=== PATIENT | male | born 1950 | race Hispanic/Latino ===

== ENCOUNTER 2021-11-08 08:54 | Inpatient (IN) | payer OTHER ==
[~2021-11-08] VITALS: Ht 157.5 cm; Wt 59.6 kg
[2021-11-08 09:05] VITALS: BP 168/84
[2021-11-08] MEDS ORDERED: MORPHINE SULFATE IV STA (09:09)
[2021-11-08] MEDS ORDERED: MORPHINE SULFATE ONE (09:11)
[2021-11-08] MEDS ORDERED: ASPIRIN PO STA (09:11)
[2021-11-08] MEDS ORDERED: ASPIRIN ONE (09:11)
--- NOTE | 2021-11-08 09:14 | PCM.EKG ---
[facility] Test Date: 2021-11-08 Test Time: 08:57:08 Pat Name: ALEX ADKINS Department: Room: Gender: M Sports Official: LIDYA : 1950 Requested By: TIGRE THOMAS Order Number: [id number] Reading MD: Measurements Intervals [place] Rate: 69 P: 56 MD: 109 QRS: -39 QRSD: 121 T: 80 QT: 460 QTc: 493 Interpretive Statements Sinus rhythm Vent pre-excit'n(WPW), right access'y pathway No previous ECG available for comparison Please click the below link to view image of tracing.
[2021-11-08 09:17] LABS: BASOPHIL % 0.2 % (0.0-0.2); EOSINOPHIL # 0.2 10^3/uL (0.0-0.2); EOSINOPHIL % 1.6 % (0.0-5.0); LYMPHOCYTES # 2.2 10^3/uL1 (1.0-4.8); LYMPHOCYTES % 21.4 % (24.0-44.0); MEAN CORP HGB 32.1 pg (26-34); MONOCYTES # 0.5 10^3/uL (0.3-0.8); MONOCYTES % 5.1 % (5.0-12.0); NEUTROPHIL # 7.4 10^3/uL (1.8-7.7); NEUTROPHILS % 71.5 % (41.0-85.0); RED CELL DISTRIBUTION WIDTH 12.3 % (11.5-14.5)
[2021-11-08] MEDS ORDERED: ZOFRAN ONE (09:19)
--- NOTE | 2021-11-08 09:19 | ER.PDOC ---
General Chief Complaint: Chest Pain-Cardiac Nature Stated Complaint: CP,BACK PAIN Time seen by MD: 09:10 Source: patient Exam Limitations: no limitations History of Present Illness Initial Comments 71-year-old male with history of hypertension and hyperlipidemia who comes here with chest pain. The chest pains pressure-like and retrosternal and moderate in intensity and started at 4 AM. No fever and no chills. No cough. No shortness of breath. No abdominal pain. No vomiting. No diarrhea. Symptoms are not associated with activity. He took an aspirin before coming here. Denies any other complaint. Past Medical History Medical History: high cholesterol, hypertension Surgical History: no surgical history LMP (females 10-50): N/A Not applicalbe Family History Significant Family History: no pertinent family hx Social History Smoking: non-smoker Alcohol Use: occassionally Drug Use: none Reviewed Nursing Reviewed: Vital Signs, Abn. Noted, Nursing Assessment Constitutional: denies no symptoms reported, denies see HPI, denies chills, denies diaphoresis, denies fever, denies malaise, denies weakness, denies other EENTM: denies no symptoms reported, denies see HPI, denies eye pain, denies blurred vision, denies tearing, denies double vision, denies ear pain, denies ear discharge, denies nose pain, denies nose congestion, denies throat pain, denies throat swelling, denies mouth pain, denies mouth swelling, denies other Respiratory: denies no symptoms reported, denies see HPI, denies cough, denies orthopnea, denies shortness of breath, denies SOB with exertion, denies SOB at rest, denies stridor, denies wheezing, denies other Cardiovascular: denies no symptoms reported, denies see HPI; chest pain; denies edema, denies irregular heart rate, denies lightheadedness, denies palpitations, denies syncope, denies other Gastrointestinal: denies no symptoms reported, denies see HPI, denies abdomen distended, denies abdominal pain, denies blood streaked bowels, denies constipated, denies diarrhea, denies difficulty swallowing, denies nausea, denies poor appetite, denies poor fluid intake, denies rectal bleeding, denies vomiting, denies other Genitourinary: denies no symptoms reported, denies see HPI, denies burning, denies dysuria, denies discharge, denies frequency, denies flank pain, denies hematuria, denies incontinence, denies pain, denies urgency, denies other Musculoskeletal: denies no symptoms reported, denies see HPI, denies back pain, denies gout, denies joint pain, denies joint swelling, denies muscle pain, denies muscle stiffness, denies neck pain, denies other Skin: denies no symptoms reported, denies see HPI, denies change in color, denies change in hair/nails, denies dryness, denies lesions, denies lumps, denies rash, denies other Psychiatric/Neurological: denies no symptoms reported, denies see HPI, denies anxiety, denies depressed, denies emotional problems, denies headache, denies numbness, denies paresthesia, denies pre-existing deficit, denies seizure, denies tingling, denies tremors, denies weakness, denies other All Other Systems: Reviewed and Negative Physical Exam General Appearance: No Apparent Distress, WD/WN HEENT: PERRL/EOMI, Normal ENT Inspection Neck: Non-Tender, Full Range of Motion, Supple, Normal Inspection Respiratory: chest non-tender, lungs clear, normal breath sounds, no re spiratory distress, no accessory muscle use Cardiovascular: Normal Peripheral Pulses, Regular Rate, Rhythm, No Edema, No Gallop, No JVD, No Murmur Gastrointestinal: Normal Bowel Sounds, No Organomegaly, No Pulsatile Mass, Non Tender, Soft Extremities: Normal Range of Motion, Non-Tender, Normal Inspection, No Pedal Ed patito, No Calf Tenderness, Normal Capillary Refill Neurologic/Psychiatric: methods analyst data processing II-XII NML as Tested, No Motor/Sensory Deficits, Alert, Normal Mood/Affect, Oriented x 3 Skin: Normal Color, Warm/Dry Lymphatic: No Adenopathy Results/Orders Results/Orders Orders - TIGRE THOMAS MD Morphine Sulfate (Morphine Sulfate) (11/08/21 09:09) Ondansetron Hcl/Pf (Zofran) (11/08/21 09:30) Cbc With Auto Diff (11/08/21 09:11) Comprehensive Metabolic Panel (11/08/21 09:11) Probnp B-Type Translational Specialist (11/08/21 09:11) PT (11/08/21 09:11) Partial Thromboplastin Time. (11/08/21 09:11) Helicobacter Pylori (11/08/21 09:11) D-Dimer (11/08/21 09:11) Xr Chest 1v (11/08/21 09:11) Ekg-Routine (11/08/21 09:11) Troponin I High Sensitivity (11/08/21 09:11) Aspirin (Aspirin) (11/08/21 09:11) Vital Signs Date Time Temp Pulse Resp B/P (MAP) Pulse Ox O2 Delivery O2 Flow Rate FiO2 11/08/21 09:05 97.7 70 16 168/84 (112) 98 Room Air* 0 21 11/08/21 09:05 97.7 70 16 98 11/08/21 09:05 97.7 70 16 Progress Progress Patient with many risk factors for heart disease and also abnormal EKG. Will be admitted to the medical team. EKG/XRAY/CT/US EKG Comments: SR@ 69, HI 109, QRS 121, ST hyperpeaked T waves, ST depression V5-6 XRAY Comments: CXR- no acute dz ER DEPART Departure Time of Disposition: 10:51 Disposition: 09 ADMITTED INPATIENT Impression: Primary Impression: Chest pain Additional Impression: Acute coronary syndrome Condition: Stable Referrals: ROBBY EARL (PCP) PRIMARY CARE PROVIDER Duration or Time Spent with Pa: 45 min Problem Qualifiers TIGRE THOMAS MD November 08, 2021 09:19
[2021-11-08] MEDS ORDERED: NITROSTAT SL STA (09:23)
--- NOTE | 2021-11-08 09:25 | NUR ---
pain RATES PAIN A 6-7 FROM 10 POST MORPHINE AND NITRO.
[2021-11-08 09:28] LABS: CARBON DIOXIDE 22.8 mmol/L (20.0-32)
--- NOTE | 2021-11-08 09:28 | DIREP ---
PROCEDURE:CHEST 1 VIEW COMPARISON:None. INDICATIONS:chest pain FINDINGS: LUNGS/PLEURA:No significant pulmonary parenchymal abnormalities. No effusions. VASCULATURE:Normal. Unremarkable pulmonary vasculature. CARDIAC:Normal. No cardiac silhouette abnormality or cardiomegaly. MEDIASTINUM:Atherosclerotic aorta with no visible aneurysm. BONES:Normal. No fracture or visible bony lesion. OTHER:Negative. CONCLUSION:No acute cardiopulmonary findings. Dictated by: Chetan Garcia M.D. on 11/08/2021 at 09:26 AM
[2021-11-08] MEDS ORDERED: ZOFRAN IV PRN (09:30)
[2021-11-08] MEDS ORDERED: LOVENOX SQ STA (10:52)
[2021-11-08] MEDS ORDERED: LOVENOX SQ ONE (11:00)
[2021-11-08 11:14] VITALS: BP 169/75
[2021-11-08 12:00] VITALS: BP 159/92
--- NOTE | 2021-11-08 12:00 | NUR ---
ADMIT PATIENT ARRIVED ON UNIT VIA WHEELCHAIR ESCORTED BY GRUPO DUVALL LVN.
--- NOTE | 2021-11-08 12:47 | PCM.HP ---
History of Present Illness Reason for Visit: Chest pain History of Present Illness 71-year-old male with history of hypertension and hyperlipidemia who comes here with chest pain. The chest pains pressure-like and retrosternal and moderate in intensity and started at 4 AM. No fever and no chills. No cough. No shortness of breath. No abdominal pain. No vomiting. No diarrhea. Symptoms are not associated with activity. He took an aspirin before coming here. Denies any other complaint. Work-up in the emergency room including initial troponin, high-sensitivity negative. EKG showed changes. Mildly elevated LFTs. In the emergency room patient was given aspirin, given 1 dose of Lovenox. Patient is being admitted hospital for further management. Past Medical History Cardiac: HTN, Hyperlipidemia Past Surgical History: No pertinent hx Past Social History Smoke: No Alcohol: rare Review of Systems Respiratory: No: Shortness of breath Cardiovascular: Chest Pain Gastrointestinal: Nausea; No: Vomiting Other Review of 14 systems negative except was mentioned above. Allergies: Coded Allergies: No Known Drug Allergies (Verified Allergy, Unknown, 11/08/21) Scheduled Atorvastatin 20MG (Lipitor 20MG), 20 MG PO DAILY24, (Reported) Lisinopril (Lisinopril), 1 TAB PO DAILY, (Reported) VTE VTE Risk Score VTE Risk: Score 0-1 = Low Risk (Aggressive mobilization; early ambulation; no VTE prophylaxis required) Score 2: Moderate Risk (Intermittent/Pneumatic Compression Device OR Lovenox/Heparin/Coumadin) Score 3-4: High Risk (Intermittent/Pneumatic Compression Device AND Lovenox/Heparin/Coumadin) Score > or =5: Highest Risk (Intermittent/Pneumatic Compression Device AND Lovenox/Heparin/Coumadin) Exam Vital Signs Vital Signs Date Time Temp Pulse Resp B/P (MAP) Pulse Ox O2 Delivery O2 Flow Rate FiO2 11/08/21 12:17 Room Air 11/08/21 11:14 97.6 64 14 169/75 (106) 98 0 21 General Appearance: Alert, Oriented X3, mild distress HEENT: Atraumatic, PERRLA Respiratory: Clear to auscultation, Normal air movement Cardiovascular: Regular rate, Normal S1, Normal S2 Abdominal: Normal bowel sounds, Soft Extremities: No clubbing, No cyanosis Skin: No rash, No breakdown Neuro: Normal gait, Normal speech Psych/Mental Status: Mental status NL Assessment/Plan Assessment/Plan Assessment/Plan 71-year-old male with history of hypertension and hyperlipidemia who comes here with chest pain. The chest pains pressure-like and retrosternal and moderate in intensity and started at 4 AM. No fever and no chills. No cough. No shortness of breath. No abdominal pain. No vomiting. No diarrhea. Symptoms are not associated with activity. He took an aspirin before coming here. Denies any other complaint. Plan Admit Telemetry monitoring Aspirin Trend troponins Lab Instructor consulted by ED physician Trend LFTs Reconcile home meds GI and DVT prophylaxis as appropriate Expect length of stay 1 midnight if patient stable Problems: (1) Hyperlipidemia ICD Code: E78.5 - Hyperlipidemia, unspecified SNOMED: 03715416 (2) Hypertension ICD Code: I10 - Essential (primary) hypertension SNOMED: 32706495 (3) Chest pain Status: Acute ICD Code: R07.9 - Chest pain, unspecified SNOMED: 35054134 VASQUEZ WALKER MD November 08, 2021 12:47
[2021-11-08] MEDS ORDERED: TYLENOL PO PRN (13:00)
[2021-11-08] MEDS ORDERED: LISI10TA20 PO (14:11)
[2021-11-08] MEDS ORDERED: ATOR20TA PO (14:12)
[2021-11-08 17:11] VITALS: BP 158/78
[2021-11-08 19:44] VITALS: BP 153/73
--- NOTE | 2021-11-08 20:39 | PCM.EKG ---
[facility] Test Date: 2021-11-08 Test Time: 20:35:29 Pat Name: ALEX ADKINS Department: Room: 331 A Gender: M Manager Content: : 1950 Requested By: WESLEY CROOKS Order Number: [id number] Reading MD: Measurements Intervals [place] Rate: 66 P: 68 AK: 113 QRS: -45 QRSD: 115 T: 43 QT: 432 QTc: 453 Interpretive Statements Sinus rhythm Ventricular preexcitation(WPW) Compared to ECG 11/08/2021 08:57:08 No significant changes Please click the below link to view image of tracing.
[2021-11-09 00:44] VITALS: BP 130/78
[2021-11-09 04:53] VITALS: BP 133/69
[2021-11-09 04:58] LABS: BASOPHIL % 0.3 % (0.0-0.2); EOSINOPHIL # 0.2 10^3/uL (0.0-0.2); EOSINOPHIL % 3.5 % (0.0-5.0); LYMPHOCYTES # 1.62 10^3/uL1 (1.0-4.8); LYMPHOCYTES % 23.7 % (24.0-44.0); MEAN CORP HGB 32.4 pg (26-34); MONOCYTES # 0.5 10^3/uL (0.3-0.8); MONOCYTES % 7.5 % (5.0-12.0); NEUTROPHIL # 4.5 10^3/uL (1.8-7.7); PLATELET COUNT 216 10^3/uL (150-400); RED CELL DISTRIBUTION WIDTH 12.8 % (11.5-14.5)
[2021-11-09 05:12] LABS: CARBON DIOXIDE 24.9 mmol/L (20.0-32)
[2021-11-09 06:54] VITALS: BP 131/78
[2021-11-09] MEDS: ASPIRIN EC PO SCH (08:57)
[2021-11-09] MEDS: PROTONIX PO SCH (08:57)
--- NOTE | 2021-11-09 09:15 | NUR ---
DISCHARGE PLAN [email or web address] AND VISITED WITH PATIENT ABOUT DISCHARGE PLANS/NEEDS/GOALS. 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 PATIENT REPORTS THAT HE SEE'S A PCP IN [place], BUT UNSURE OF WHAT HIS NAME IS. PATIENT REPORTS HE IS IND AND DRIVES DAILY. DENIES ANY DISCHARGE NEEDS. PATIENT PLANS TO DISCHARGE BACK HOME AND RETURN TO WORK.
[2021-11-09 11:10] VITALS: BP 119/75
[2021-11-09] MEDS ORDERED: PANT40TA3 PO (12:13)
[2021-11-09] MEDS ORDERED: ASPI-929 PO (12:13)
--- NOTE | 2021-11-09 12:18 | PRM.DC ---
Discharge Summary Reason for Visit: Chest pain Additional Comments 71-year-old male with history of hypertension, hyperlipidemia presented emergency room with chest pain. Initial work-up including initial troponin negative. EKG showed nonspecific ST changes. Patient was given aspirin, 1 dose of Lovenox.Patient was admitted to the hospital for further management. Chest pain resolved. Patient is feeling much better today. Only concerned that his LFTs on admission was mildly elevated, today its higher. Patient is on statin at home. We will get a right Upper quadrant ultrasound before discharge, if unremarkable Patient can be discharged but will advised to hold statins until patient follow-up with his primary care physician and drawing machine operator. If right upper quadrant ultrasound negative, patient will be able to be discharged. Patient will be discharged home. Activity as tolerated. Diet heart healthy. Follow-up with primary care physician as soon as possible. Aloe up with his drawing machine operator in 1 week, may need further cardiac work-up including stress testing. Patient History: Unknown Exam/Vitals Vital Signs Date Time Temp Pulse Resp B/P (MAP) Pulse Ox O2 Delivery O2 Flow Rate FiO2 11/09/21 11:10 97.9 67 18 119/75 (90) 98 Room Air* 0 11/09/21 06:54 98.3 60 18 131/78 (95) 97 Room Air* 0 11/09/21 04:53 97.8 61 18 133/69 (90) 95 Room Air* 0 11/09/21 00:44 98.4 80 18 130/78 (95) 98 Room Air* 0 11/08/21 23:38 Room Air 11/08/21 19:44 98.7 64 18 153/73 (99) 96 Room Air* 0 11/08/21 19:44 98.7 64 18 96 Room Air 0.00 11/08/21 17:11 99.2 74 18 158/78 (104) 97 Room Air* 0 11/08/21 12:17 Room Air 11/08/21 12:00 98.0 62 18 159/92 (114) 97 Room Air* 0 11/08/21 11:14 97.6 64 14 169/75 (106) 98 Room Air* 0 11/08/21 09:05 97.7 70 16 168/84 (112) 98 Room Air* 0 11/08/21 09:05 97.7 70 16 98 11/08/21 09:05 97.7 70 16 General: Alert, Oriented X3, No acute distress HEENT: Atraumatic, PERRLA Neck: Supple, No JVD Lungs: Clear to auscultation, Normal air movement Heart: Regular rate, Normal S1, Normal S2 Abdomen: Normal bowel sounds, Soft Extremities: No clubbing, No cyanosis Skin: No significant lesion Neuro: Normal speech, Normal tone Psych/Mental Status: Mental status NL, Mood NL Scheduled Aspirin (Aspirin Ec), 81 MG PO DAILY Atorvastatin 20MG (Lipitor 20MG), 20 MG PO DAILY24, (Reported) Lisinopril (Lisinopril), 1 TAB PO DAILY, (Reported) Pantoprazole Sodium (Protonix), 40 MG PO DAILY Sepsis Evaluation @ Discharge 11/08/21 23:52 Plan Problems: (1) Chest pain Status: Acute ICD Code: R07.9 - Chest pain, unspecified SNOMED: 50292998 (2) Hypertension ICD Code: I10 - Essential (primary) hypertension SNOMED: 17823049 (3) Hyperlipidemia ICD Code: E78.5 - Hyperlipidemia, unspecified SNOMED: 20859487 Plan 71-year-old male with history of hypertension, hyperlipidemia presented emergency room with chest pain. Initial work-up including initial troponin negative. EKG showed nonspecific ST changes. Patient was given aspirin, 1 dose of Lovenox.Patient was admitted to the hospital for further management. Chest pain resolved. Patient is feeling much better today. Only concerned that his LFTs on admission was mildly elevated, today its higher. Patient is on statin at home. We will get a right Upper quadrant ultrasound before discharge, if unremarkable Patient can be discharged but will advised to hold statins until patient follow-up with his primary care physician and drawing machine operator. If right upper quadrant ultrasound negative, patient will be able to be discharged. Patient will be discharged home. Activity as tolerated. Diet heart healthy. Follow-up with primary care physician as soon as possible. Aloe up with his drawing machine operator in 1 week, may need further cardiac work-up including stress testing. VASQUEZ WALKER MD Nov 09, 2021 12:18
[2021-11-09 15:45] VITALS: BP 137/74
--- NOTE | 2021-11-09 16:01 | CNH ---
DATE OF CONSULTATION: 11/08/2021 DICTATOR NAME: WESLEY CROOKS DO REASON FOR CONSULTATION: Chest pain. HISTORY OF PRESENT ILLNESS: This is a 71-year-old male who presented to the Emergency Room with sudden onset of chest discomfort, which he states started this morning while he was at work. Upon presentation to the ED, EKG shows normal sinus rhythm with left ventricular hypertrophy and nonspecific ST-T wave changes with an old inferior infarct. High sensitive troponin is currently negative x 3. At this time, he denies any chest pain. A consultation was placed to Cardiology service for evaluation. PAST MEDICAL HISTORY: Significant for; 1. Hypertension. 2. Hyperlipidemia. PAST SURGICAL HISTORY: He denies any surgical history. ALLERGIES: He has no known drug allergies. MEDICATIONS: He takes at home. The patient reports taking the medication for high blood pressure as well as high cholesterol, but cannot recall the names. FAMILY HISTORY: He denies any family history of premature coronary artery disease or sudden cardiac . SOCIAL HISTORY: He denies tobacco use, denies illicit drug use. Admits to occasional alcohol use. REVIEW OF SYSTEMS: As per HPI and as per the ER notes, all systems are reviewed and negative for interval change. PHYSICAL EXAMINATION: VITAL SIGNS: Blood pressure is 158/78, respiratory rate is 18, pulse is 74, temperature is 98.7, pulse oximetry 97% on room air. GENERAL: He is in no apparent distress, alert and oriented x 3. HEENT: Normocephalic, atraumatic. Extraocular muscles intact. Pupils equally round, reactive to light and accommodation. CARDIAC: S1, S2 plus 2/6 holosystolic murmur. No gallops, rubs, or clicks. LUNGS: Clear to auscultation bilaterally. No wheezing, rhonchi or rales. ABDOMEN: Soft, nontender, nondistended. Positive bowel sounds in all 4 quadrants. EXTREMITIES: No cyanosis, no clubbing, no edema, +2 pedal pulses palpable bilaterally. NEUROLOGIC: No neurological deficits. Sensation is intact. IMPRESSION: 1. Chest pain. 2. Hypertension. 3. Hyperlipidemia. RECOMMENDATIONS: This is a 71-year-old male who presented to the Emergency Room with chest pain that started this morning. High sensitive troponin is negative x 3. At this time, he denies any angina. Echocardiography is currently not available at the hospital. Given his risk factors for CAD, he certainly would benefit from cardiac ischemic workup. This will be set up in the outpatient setting when he follows up with me in the clinic. If he remains chest pain free in the morning and troponins remain negative, he can be discharged home from my standpoint to follow up with me in the clinic in 1 week. He will be set up for stress test and echocardiography in the outpatient setting. Bethany HAYS D.O. DR: ELO TID: [id number] RECEIPT: [id number]
[2021-11-09 20:03] VITALS: BP 161/84
--- NOTE | 2021-11-09 23:56 | DIREP ---
PROCEDURE:US ABDOMEN LIMITED COMPARISON:None. INDICATIONS:Elevated LFTs, Epigastic pain TECHNIQUE:High resolution sonographic examination was performed of the abdomen. FINDINGS: PANCREAS:The imaged pancreatic body appears grossly unremarkable. The pancreatic head and tail are largely obscured by overlying bowel gas. LIVER:Increased hepatic echogenicity would suggest diffuse hepatic steatosis. Appropriate directional flow within the main portal vein. GALLBLADDER:Apparent mild biliary sludge. No definite echogenic shadowing calculi are identified. There is no overt gallbladder wall thickening or pericholecystic fluid collections. BILIARY:The common duct measures up to approximately 2 mm diameter and is within normal limits. RIGHT KIDNEY:The right kidney measures approximately 9.9 x 3.7 x 4.2 cm. No hydronephrosis. OTHER:No significant ascites. CONCLUSION: 1. Apparent biliary sludge without definite cholelithiasis. No secondary signs to suggest acute cholecystitis. Normal caliber common duct. 2. Diffuse hepatic steatosis. Dictated by: Eliazar Baker M.D. On 11/09/2021 at 11:52 PM
[2021-11-10 00:31] VITALS: BP 128/82
[2021-11-10 03:00] VITALS: BP 140/89
[2021-11-10 09:10] VITALS: BP 138/86
[2021-11-10] MEDS: PROTONIX PO SCH (09:54)
[2021-11-10] MEDS: ASPIRIN EC PO SCH (10:17)
--- NOTE | 2021-11-10 10:29 | PRM.PN ---
Subjective Subjective Date: Nov 09, 2021 Time: 20:00 Patient History: Unknown Assessment/Plan Assessment/Plan Assessment/Plan LFTs trending up. Right upper quadrant ultrasound shows? Biliary sludge. Patient will be kept overnight and will recheck LFTs in a.m. If LFTs continues to trend up we will consult surgeon. If LFTs start trending down patient will be able to be disc harged if asymptomatic. VASQUEZ WALKER MD Nov 10, 2021 10:29
--- NOTE | 2021-11-10 10:35 | PRM.DC ---
DISCHARGE SUMMARY Y 71-year-old male with history of hypertension, hyperlipidemia presented [facility] with chest pain. Initial work-up including initial troponin negative. EKG showed nonspecific ST changes. Patient was given aspirin, 1 dose of Lovenox.Patient was admitted to the hospital for further management. Work-up including troponin is negative. Chest pain resolved. His LFTs started trending up yesterday. Right upper quadrant ultrasound was done.? Biliary sludge. Patient was kept overnight. LFTs rechecked. LFTs started trending down today. Patient denies chest pain or abdominal pain. Patient will be discharged home. Activity as tolerated. Diet heart healthy. Patient will be discharged home. Follow-up with primary care physician in 1 week. Follow-up with cardiology in 1 week. Patient may need further cardiac work-up including stress testing. Patient History: Unknown Vital Signs Date Time Temp Pulse Resp B/P (MAP) Pulse Ox O2 Delivery O2 Flow Rate FiO2 11/10/21 09:10 97.7 67 18 138/86 (103) 96 Room Air* 0 11/10/21 03:00 98.5 63 18 140/89 (106) 95 Room Air* 0 11/10/21 00:31 97.9 73 18 128/82 (97) 96 Room Air* 0 11/09/21 21:04 Room Air 11/09/21 20:03 97.8 79 17 161/84 (109) 99 Room Air* 0 11/09/21 15:45 98.1 64 17 137/74 (95) 97 Room Air* 0 11/09/21 11:10 97.9 67 18 119/75 (90) 98 Room Air* 0 11/09/21 06:54 98.3 60 18 131/78 (95) 97 Room Air* 0 11/09/21 04:53 97.8 61 18 133/69 (90) 95 Room Air* 0 11/09/21 00:44 98.4 80 18 130/78 (95) 98 Room Air* 0 11/08/21 23:38 Room Air 11/08/21 19:44 98.7 64 18 153/73 (99) 96 Room Air* 0 11/08/21 19:44 98.7 64 18 96 Room Air 0.00 11/08/21 17:11 99.2 74 18 158/78 (104) 97 Room Air* 0 11/08/21 12:17 Room Air 11/08/21 12:00 98.0 62 18 159/92 (114) 97 Room Air* 0 11/08/21 11:14 97.6 64 14 169/75 (106) 98 Room Air* 0 11/08/21 09:05 97.7 70 16 168/84 (112) 98 Room Air* 0 11/08/21 09:05 97.7 70 16 98 11/08/21 09:05 97.7 70 16 Exam/Vitals Vital Signs Date Time Temp Pulse Resp B/P (MAP) Pulse Ox O2 Delivery O2 Flow Rate FiO2 11/09/21 11:10 97.9 67 18 119/75 (90) 98 Room Air* 0 11/09/21 06:54 98.3 60 18 131/78 (95) 97 Room Air* 0 11/09/21 04:53 97.8 61 18 133/69 (90) 95 Room Air* 0 11/09/21 00:44 98.4 80 18 130/78 (95) 98 Room Air* 0 11/08/21 23:38 Room Air 11/08/21 19:44 98.7 64 18 153/73 (99) 96 Room Air* 0 11/08/21 19:44 98.7 64 18 96 Room Air 0.00 11/08/21 17:11 99.2 74 18 158/78 (104) 97 Room Air* 0 11/08/21 12:17 Room Air 11/08/21 12:00 98.0 62 18 159/92 (114) 97 Room Air* 0 11/08/21 11:14 97.6 64 14 169/75 (106) 98 Room Air* 0 11/08/21 09:05 97.7 70 16 168/84 (112) 98 Room Air* 0 11/08/21 09:05 97.7 70 16 98 11/08/21 09:05 97.7 70 16 General: Alert, Oriented X3, No acute distress HEENT: Atraumatic, PERRLA Neck: Supple, No JVD Lungs: Clear to auscultation, Normal air movement Heart: Regular rate, Normal S1, Normal S2 Abdomen: Normal bowel sounds, Soft Extremities: No clubbing, No cyanosis Skin: No significant lesion Neuro: Normal speech, Normal tone Psych/Mental Status: Mental status NL, Mood NL Scheduled Aspirin (Aspirin Ec), 81 MG PO DAILY Atorvastatin 20MG (Lipitor 20MG), 20 MG PO DAILY24, (Reported) Lisinopril (Lisinopril), 1 TAB PO DAILY, (Reported) Pantoprazole Sodium (Protonix), 40 MG PO DAILY Sepsis Evaluation @ Discharge Plan Problems: (1) Chest pain Status: Acute ICD Code: R07.9 - Chest pain, unspecified SNOMED: 69824993 (2) Hypertension ICD Code: I10 - Essential (primary) hypertension SNOMED: 47527396 (3) Hyperlipidemia ICD Code: E78.5 - Hyperlipidemia, unspecified SNOMED: 94082077 4. Transaminitis Plan 71-year-old male with history of hypertension, hyperlipidemia presented emergency room with chest pain. Initial work-up including initial troponin negative. EKG showed nonspecific ST changes. Patient was given aspirin, 1 dose of Lovenox.Patient was admitted to the hospital for further management. Work-up including troponin is negative. Chest pain resolved. His LFTs started trending up yesterday. Right upper quadrant ultrasound was done.? Biliary sludge. Patient was kept overnight. LFTs rechecked. LFTs started trending down today. Patient denies chest pain or abdominal pain. Patient will be discharged home. Activity as tolerated. Diet heart healthy. Patient will be discharged home. Follow-up with primary care physician in 1 week. Follow-up with cardiology in 1 week. Patient may need further cardiac work-up including stress testing. VASQUEZ WALKER MD Nov 10, 2021 10:35
--- NOTE | 2021-11-10 11:10 | NUR ---
PRESCRIPTIONS PRESCRIPTIONS CALLED INTO [facility] IN [place], [place] BY THIS NURSE AT THIS TIME.
[2021-11-10 12:22] VITALS: BP 132/73
--- NOTE | 2021-11-10 12:55 | NUR ---
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 PATIENT REPORTS THAT HE HAS AN APPT@THE END OF THE YEAR. CM [facility]ED [facility] AND SPOKE WITH CHARLES AND NEW APPT MADE FOR PATIENT TO FOLLOW UP ON NOVEMBER 17, 2021@8:30 AND PATIENT WILL SEE DR Jackie CHRISTY'S NURSE [facility]. CM OBTAINED FAX NUMBERS FOR PCP. CM FAXED COMPLETE CLINICAL RECORD TO DR Jackie CHRISTY@[phone] & [phone]. FAX CONFIRMATION CONFIRMED COMPLETE ON BOTH FAXES. CM CONTACTED PATIENT VIA PHONE AND INFORMED HIM OF APPT TIME AND HE IS AGREEABLE. PATIENT REPORTS THAT INFORMATION IS IN HIS DISCHARGE PAPERWORK.
[2021-11-10 13:00] VITALS: BP 132/73
--- NOTE | 2021-11-10 13:00 | NUR ---
DISCHARGE IV REMOVED TIP INTACT, TELEMETRY REMOVE. INSTRUCTED ON HOME MEDICATION REGIME, HOME ACTIVITY AND DIET, FOLLOW UP APPOINTMENTS. PATIENT DENIES FURTHER NEEDS AT THIS TIME. ESCORTED PATIENT OFF UNIT. PATIENT LEFT HOSPITAL WITH SON.
== END 2021-11-10 13:00 | disposition home or self-care (01) | DRG 313 ==
LOC: ER 08:54 → MS 11:09
PROVIDERS: ADMIT Internal Medicine; ATTEND Internal Medicine
DX: R07.9 Chest pain, unspecified (principal); I24.9 Acute ischemic heart disease, unspecified; E78.00 Pure hypercholesterolemia, unspecified; E78.5 Hyperlipidemia, unspecified; I10 Essential (primary) hypertension; R79.89 Other specified abnormal findings of blood chemistry; Z79.899 Other long term (current) drug therapy
CPT/HCPCS: 36415; 71045; 76705; 80053; 80076; 83880; 84484; 85025; 85379; 85610; 85730; 93005; 99285; G0378; J1650; J2405